=== PATIENT | male | born 1990 ===

== ENCOUNTER 2022-04-02 16:31 | Emergency (ER) | payer SELFPAY | END 2022-04-02 19:19 | disposition EXP | LOC: JD.ED 16:31 → EDBD 16:31 → JD.ED 19:19 | DX: S01.90XA Unspecified open wound of unspecified part of head, initial encounter (principal); W34.00XA Accidental discharge from unspecified firearms or gun, initial encounter | CPT/HCPCS: 70450; 70450-26; 99285 ==